=== PATIENT | male | born 1985 | race Caucasian/White ===

== ENCOUNTER 2023-01-24 13:24 | Emergency (ER) | payer MEDICAID ==
[~2023-01-24] VITALS: Ht 180.3 cm; Wt 72.7 kg
--- NOTE | 2023-01-24 14:45 | NUR ---
TO CT VIA WC
[2023-01-24] MEDS ORDERED: ketorolac tromethamine 15mg/ml inj. IM ONE (14:50)
[2023-01-24] MEDS ORDERED: clonazePAM 1mg tablet PO ONE (15:35)
[2023-01-24] MEDS ORDERED: BACL-11 PO (16:50)
[2023-01-24] MEDS ORDERED: NAPR500T6 PO (16:51)
[2023-01-24 17:02] VITALS: BP 119/77
== END 2023-01-24 17:07 | disposition home or self-care (01) ==
LOC: ER 13:25
DX: S22.080A Wedge compression fracture of T11-T12 vertebra, initial encounter for closed fracture (principal); M62.838 Other muscle spasm; M54.2 Cervicalgia; Z88.8 Allergy status to other drugs, medicaments and biological substances; Z79.899 Other long term (current) drug therapy; V48.0XXA Car driver injured in noncollision transport accident in nontraffic accident, initial encounter; Y93.89 Activity, other specified; Y92.89 Other specified places as the place of occurrence of the external cause; Y99.8 Other external cause status
CPT/HCPCS: 72125; 72128; 72131; 96372; 99285; J1885